=== PATIENT | male | born 1955 | race Caucasian/White ===

== ENCOUNTER 2017-09-10 09:20 | Day surgery (SDC) | payer BC ==
[~2017-09-10] VITALS: Ht 180.3 cm; Wt 81.2 kg
[~2017-09-10 09:20] MED LIST: LEVEMIR FL100 UNIT/1 SC; LIPITOR40 MG PO; NOVOLOG PE100 UNITS/ SC
[2017-09-10 10:01] VITALS: BP 174/67
[2017-09-10 14:00] VITALS: BP 159/88
[2017-09-10 14:55] VITALS: BP 144/92
== END 2017-09-10 15:00 | disposition home or self-care (01) ==
LOC: SDC 09:20
PROVIDERS: Ophthalmology
PROC: 08B43ZZ Excision of Right Vitreous, Percutaneous Approach (ICD-10-PCS; principal; 2017-09-10)
DX: H33.021 Retinal detachment with multiple breaks, right eye (principal); E10.65 Type 1 diabetes mellitus with hyperglycemia; E78.5 Hyperlipidemia, unspecified; E55.9 Vitamin D deficiency, unspecified
CPT/HCPCS: 82948; J0131; J0330; J0690; J0713; J2250; J2405; J3010; J3300